=== PATIENT | female | born 1995 | race Caucasian/White ===

== ENCOUNTER → 2022-06-10 | Outpatient (CLI) | payer OTHER ==
--- NOTE | 2022-06-10 16:08 | Diagnostic Imaging Report ---
INDICATION: survey. TECHNIQUE: Multiple real-time grayscale images were obtained over the gravid uterus. COMPARISON: None FINDINGS: There is a single live fetus in a cephalic presentation. heart rate was recorded at 139 bpm. Placenta is posterior. No previa is identified. Amniotic fluid index is 10.4 cm. kidneys, bladder and stomach are unremarkable. brains unremarkable. There is four-chamber heart. There is three-vessel cord with normal insertion. spine is unremarkable. Biometrical measurements are as follows: Biparietal 4.80 cm, age 20 weeks 4 days. Head circumference 18.69 cm, age 21 weeks 1 days. Abdominal circumference 15.41 cm, age 20 weeks 5 days. Femur length 3.44 cm, age 20 weeks 6 days. Sonographic estimate age: 20 weeks 6 days. Sonographic estimated date of delivery: 10/22/2022. Estimated Weight: 373 gm (+/- 55 gm). LMP percentile: 54%. heart rate: 139 beats per minute. number: 1 of 1. IMPRESSION: Single live IUP 20 weeks 6 days gestational age. Estimated date of confinement sonographically is 10/22/2022. No complicating features are detected. Dictated by: Dictated on workstation # [id number]
== END ==
LOC: RAD 09:52
PROVIDERS: ATTEND Obstetrics & Gynecology
DX: Z36.9 Encounter for antenatal screening, unspecified (principal); Z3A.20 20 weeks gestation of pregnancy
CPT/HCPCS: 76805

== ENCOUNTER → 2022-10-14 | Outpatient (CLI) | payer OTHER | LOC: LABNPT 10:40 | PROVIDERS: ATTEND Nurse Practitioner Women's Health | DX: O13.9 Gestational [pregnancy-induced] hypertension without significant proteinuria, unspecified trimester (principal); Z3A.00 Weeks of gestation of pregnancy not specified | CPT/HCPCS: 82570; 84156 ==

== ENCOUNTER 2022-10-18 18:45 | Inpatient (IN) | payer OTHER ==
[~2022-10-18] VITALS: Ht 165 cm; Wt 108.9 kg
[2022-10-18] MEDS ORDERED: PREN-102 PO (19:36)
[2022-10-18 19:45] VITALS: BP 135/81
[2022-10-18] MEDS ORDERED: MINERAL OIL 30 ML UDC TOP PRN (19:45)
[2022-10-18] MEDS ORDERED: LIDOCAINE 1% INJ 20 ML VIAL IJ ONE (19:45)
[2022-10-18] MEDS: LACTATED RINGERS 1,000 ML IV SCH (19:59)
[2022-10-18 20:19] LABS: BILIRUBIN,URINE NEGATIVE (NEGATIVE); CLARITY,URINE CLEAR; COLOR,URINE YELLOW; GLUCOSE, URINE (UA) NEGATIVE (NEGATIVE); KETONES,URINE TRACE (NEGATIVE); LEUKOCYTE ESTERASE ,URINE NEGATIVE (NEGATIVE); NITRITE,URINE NEGATIVE (NEGATIVE); PH,URINE 6.5 (5-9); PROTEIN,URINE NEGATIVE (NEGATIVE)
[2022-10-18 20:20] LABS: BASOPHILS % (AUTO) 0 % (0-10); EOSINOPHILS # (AUTO) 0.1 10^3/uL (0.0-0.3); EOSINOPHILS % (AUTO) 1 % (0-10); HEMATOCRIT 35 % (35-52); HEMOGLOBIN 11.3 g/dL (11.5-16.0); LYMPHOCYTES # (AUTO) 2.6 10^3/uL (1.0-4.0); LYMPHOCYTES % (AUTO) 19 % (12-44); MEAN CORPUSCULAR HEMOGLOBIN 27 pg (25-34); MEAN CORPUSCULAR HGB CONC 32 g/dL (32-36); MEAN CORPUSCULAR VOLUME 85 fL (80-99); MEAN PLATELET VOLUME 10.6 fL (9.0-12.2); MONOCYTES % (AUTO) 8 % (0-12); NEUTROPHILS # (AUTO) 9.4 10^3/uL (1.8-7.8); NEUTROPHILS % (AUTO) 70 % (42-75); PLATELET COUNT 202 10^3/uL (130-400); WHITE BLOOD COUNT 13.5 10^3/uL (4.3-11.0)
[2022-10-18 20:31] VITALS: BP 123/79
[2022-10-18 20:59] LABS: BACTERIA,URINE FEW /HPF
[2022-10-18] MEDS ORDERED: D5 LR IV SOLUTION 1,000 ML IV ONE (21:05)
[2022-10-18] MEDS: D5 LR IV SOLUTION 1,000 ML IV SCH (21:08)
[2022-10-18 21:09] VITALS: BP 131/77
[2022-10-18 22:21] VITALS: BP 131/78
[2022-10-19] VITALS (63 sets, daily range): BP systolic 102–162; BP diastolic 52–97
[2022-10-19] MEDS: D5 LR IV SOLUTION 1,000 ML IV SCH ×3 (04:17→20:17)
[2022-10-19] MEDS ORDERED: OXYTOCIN PRE-MIX DRIP 500 ML IV ONE (06:53)
[2022-10-19] MEDS ORDERED: OXYTOCIN PRE-MIX DRIP 500 ML IV SCH (07:00)
--- NOTE | 2022-10-19 08:37 | History & Physical-OB ---
OB - Chief Complaint & HPI Date/Time Date of Admission: Date of Admission: Oct 18, 2022 at 18:45 Date seen by a Provider: Oct 19, 2022 Time Seen by a Provider: 08:25 Chief Complaint/History OB-Reason for Admission/Chief: Induction of Labor Hx : 39 Hx Para: 2 Expected Date of Delivery: Oct 24, 2022 Gestational Age in Weeks: 39 Gestational Age in Days: 1 Other reason for admission: Patient admitted for IOL at 39 weeks for GHTN. Misoprostol given overnight PO. Admission Nurse Assessment Rev: Yes Allergies and Home Medications Allergies Coded Allergies: No Known Drug Allergies (Unverified , 10/18/22) Patient Home Medication List Home Medication List Reviewed: Yes Vits #93/Iron Fum/FA ( Formula Tablet) 9 Mg Iron-267 Mcg Tablet, 1 EACH PO DAILY, (Reported) Entered as Reported by: Martha Billingsley on 10/18/221935 Last Action: New Order OB - History Hx of Present Care: Yes Ultrasounds: Normal mid trimester US Obstetrical Complications: Gestational Hypertension Medical Complications: None Patient Past Medical History n/a Immunizations Influenza Vaccine Up-to-Date: Yes; Up-to-Date OB - Admission Exam Physical Exam Vitals: Vital Signs 10/19/22 10/19/22 10/19/22 02:05 07:40 07:55 Temp 36.0 Pulse 71 Resp 18 B/P (MAP) 124/86 (99) Pulse Ox 98 O2 Delivery Room Air HEENT: NCAT Heart: Rhythm Normal Lungs: Clear Abdomen: Gravid Extremities: Normal Reflexes: Normal Cervical Dilatation: None Effacement: 75% Station: -2 Membranes: Intact Heart Rate: 130's Accelerations: Accelerations Present Decelerations: No Decelerations Short Term Variability: Present Snf Variability: Average (6-25) Contractions on Admission: 6-10 Minutes Apart Intensity: Mild Labs Laboratory Tests Test 10/18/22 20:00 Range/Units White Blood Count 13.5 H 4.3-11.0 10^3/uL Red Blood Count 4.14 3.80-5.11 10^6/uL Hemoglobin 11.3 L 11.5-16.0 g/dL Hematocrit 35 35-52 % Mean Corpuscular Volume 85 80-99 fL Mean Corpuscular Hemoglobin 27 25-34 pg Mean Corpuscular Hemoglobin Concent 32 32-36 g/dL Red Cell Distribution Width 13.8 10.0-14.5 % Platelet Count 202 130-400 10^3/uL Mean Platelet Volume 10.6 9.0-12.2 fL Immature Granulocyte % (Auto) 3 % Neutrophils (%) (Auto) 70 42-75 % Lymphocytes (%) (Auto) 19 12-44 % Monocytes (%) (Auto) 8 0-12 % Eosinophils (%) (Auto) 1 0-10 % Basophils (%) (Auto) 0 0-10 % Neutrophils # (Auto) 9.4 H 1.8-7.8 10^3/uL Lymphocytes # (Auto) 2.6 1.0-4.0 10^3/uL Monocytes # (Auto) 1.0 0.0-1.0 10^3/uL Eosinophils # (Auto) 0.1 0.0-0.3 10^3/uL Basophils # (Auto) 0.0 0.0-0.1 10^3/uL Immature Granulocyte # (Auto) 0.4 H 0.0-0.1 10^3/uL Urine Color YELLOW Urine Clarity CLEAR Urine pH 6.5 5-9 Urine Specific [place] 1.025 H 1.016-1.022 Urine Protein NEGATIVE NEGATIVE Urine Glucose (UA) NEGATIVE NEGATIVE Urine Ketones TRACE H NEGATIVE Urine Nitrite NEGATIVE NEGATIVE Urine Bilirubin NEGATIVE NEGATIVE Urine Urobilinogen 0.2 < = 1.0 MG/DL Urine Leukocyte Esterase NEGATIVE NEGATIVE Urine RBC (Auto) NEGATIVE NEGATIVE Urine RBC NONE /HPF Urine WBC 2-5 /HPF Urine Squamous Epithelial Cells 2-5 /HPF Urine Crystals NONE /LPF Urine Bacteria FEW H /HPF Urine Casts NONE /LPF Urine Mucus NEGATIVE /LPF Urine Culture Indicated YES OB - Assessment/Plan/Diagnosis Assessment Assessment: induction of labor Admission Dx 27 yo @ 39.2 GHTN GBS neg Admission Status: Inpatient Order (span 2 midnights) Reason for Inpatient Admission: IOL at 39 weeks Plan Plan: Induction Induction Method: per Misoprostol Protocol Other Plan Pitocin augmentation started this AM, unable to AROM ADRIANA MILLAN DO Oct 19, 2022 08:37
[2022-10-19] MEDS ORDERED: HYDROmorphone 2 MG/ML VIAL (DILAUDID) ONE (21:51)
[2022-10-19] MEDS ORDERED: HYDROmorphone 2 MG/ML VIAL (DILAUDID) IV PRN ×2 (22:00→22:15)
[2022-10-20] VITALS (65 sets, daily range): BP systolic 111–163; BP diastolic 55–89
[2022-10-20] MEDS: D5 LR IV SOLUTION 1,000 ML IV SCH ×2 (02:16→10:09)
[2022-10-20] MEDS ORDERED: fentaNYL 2 mcg/ml BUPIVA 0.125 100 ML ONE (02:24)
[2022-10-20] MEDS: LACTATED RINGERS 1,000 ML IV SCH (02:27)
[2022-10-20] MEDS ORDERED: LIDOCAINE PF 2% 5 ML (XYLOCAINE) VIAL ONE (02:57)
[2022-10-20] MEDS ORDERED: fentaNYL INJ 100 MCG/2 ML AMP ONE (02:57)
[2022-10-20] MEDS: fentaNYL 2 mcg/ml BUPIVA 0.125 100 ML EPI SCH ×2 (03:25→11:31)
[2022-10-20] MEDS ORDERED: ONDANSETRON 4 MG/2 ML (SDV) Z0FRAN IV PRN (03:45)
[2022-10-20] MEDS ORDERED: LACTATED RINGERS 1,000 ML IV SCH (03:45)
[2022-10-20] MEDS ORDERED: diphenhydrAMINE 50 MG/ML INJ (BENADRYL) IV PRN (03:45)
[2022-10-20] MEDS ORDERED: NALOXONE 0.4 MG/ML 1 ML (NARCAN) VIAL IV PRN ×3 (03:45→16:00)
[2022-10-20] MEDS ORDERED: METOCLOPRAMIDE INJ 10 MG/2 ML (REGLAN) IV PRN (03:45)
[2022-10-20] MEDS ORDERED: LIDOCAINE 1% INJ 20 ML VIAL ONE (10:59)
[2022-10-20] MEDS: OXYTOCIN PRE-MIX DRIP 500 ML IV SCH ×2 (15:47→16:20)
[2022-10-20] MEDS ORDERED: METHYLERGONOVINE 0.2 MG/ML (METHERGINE) AMP ONE (15:50)
[2022-10-20] MEDS ORDERED: MEASLES,MUMPS,RUBELLA 1 EA INJ SQ ONE (16:00)
[2022-10-20] MEDS ORDERED: HYDROcodone/APAP 5 MG/325 MG (LORTAB) TAB PO PRN (16:00)
[2022-10-20] MEDS ORDERED: DIBUCAINE 1% OINTMENT 28 GM TUBE TOP PRN (16:00)
[2022-10-20] MEDS ORDERED: TETANUS,DIPTH,PERTUSS P/F (BOOSTRIX) 0.5 ML VIAL IM ONE (16:00)
[2022-10-20] MEDS ORDERED: WITCH HAZEL(TUCKS) 40 EA JAR TOP PRN (16:00)
[2022-10-20] MEDS ORDERED: BENZOCAINE/MENTHOL (DERMOPLAST) 56 ML CAN TP PRN (16:00)
--- NOTE | 2022-10-20 16:08 | OB Labor & Delivery Record ---
L&D History Date of Service Date of Service: Oct 20, 2022 History Expected Date of Delivery: Oct 24, 2022 Gestational Age in Weeks: 39 Hx : 39 Hx Para: 2 Complications Events: Routine care Operative Indications (Cesarea: N/A-Vaginal Delivery Intrapartal Events: None L&D Stage1 Stage One Onset of Labor - Date: Oct 20, 2022 Monitors and Tracing Monitor Mode: Internal Heart Rate: 140 Monitor Accelerations: Uniform Monitor Decelerations: Variable Station: 0 Chcf Variability: Average (6-10) Short Term Variability: Present Presentation: Vertex Vital Signs VS - Last 72 Hours, by Label 10/18/22 10/18/22 10/18/22 10/18/22 19:45 20:31 21:09 22:21 Temp 36.4 36.4 36.7 36.5 Pulse 86 82 81 76 Resp 18 18 18 B/P (MAP) 123/79 (94) 131/77 (95) 131/78 (95) Pulse Ox 98 O2 Delivery Room Air Room Air 10/19/22 10/19/22 10/19/22 10/19/22 00:33 02:05 04:17 05:29 Temp 36.4 36.1 36.3 36.4 Pulse 67 71 71 68 Resp 16 16 16 16 B/P (MAP) 102/52 (69) 131/78 (95) 121/69 (86) 123/75 (91) Pulse Ox 98 O2 Delivery Room Air Room Air Room Air 10/19/22 10/19/22 10/19/22 10/19/22 06:12 07:00 07:15 07:40 Temp 36.3 36.1 36.1 36.0 Pulse 76 69 71 77 Resp 18 18 18 18 B/P (MAP) 118/62 (80) 126/81 (96) 120/72 (88) 129/84 (99) O2 Delivery Room Air Room Air 10/19/22 10/19/22 10/19/22 10/19/22 07:55 08:10 08:25 08:40 Pulse 71 70 83 78 Resp 18 18 18 18 B/P (MAP) 124/86 (99) 137/74 (95) 128/88 (101) 133/77 (95) O2 Delivery Room Air Room Air Room Air Room Air 10/19/22 10/19/22 10/19/22 10/19/22 08:55 09:10 09:25 09:40 Pulse 70 72 75 82 Resp 18 18 18 18 B/P (MAP) 130/72 (91) 134/76 (95) 135/90 (105) 123/73 (90) O2 Delivery Room Air Room Air Room Air Room Air 10/19/22 10/19/22 10/19/22 10/19/22 09:55 10:10 10:24 10:40 Temp 36.2 Pulse 78 70 74 70 Resp 18 18 18 18 B/P (MAP) 120/71 (87) 121/73 (89) 134/81 (98) 135/84 (101) O2 Delivery Room Air Room Air Room Air Room Air 10/19/22 10/19/22 10/19/22 10/19/22 10:55 11:10 11:25 11:45 Temp 36.0 Pulse 67 70 86 63 Resp 18 18 18 18 B/P (MAP) 129/83 (98) 132/88 (103) 138/88 (105) 124/60 (81) O2 Delivery Room Air Room Air Room Air Room Air 10/19/22 10/19/22 10/19/22 10/19/22 11:55 12:10 12:24 12:40 Pulse 63 68 69 77 Resp 18 18 18 18 B/P (MAP) 110/63 (79) 140/80 (100) 145/92 (109) 128/83 (98) O2 Delivery Room Air Room Air Room Air Room Air 10/19/22 10/19/22 10/19/22 10/19/22 12:55 13:10 13:25 13:41 Pulse 74 91 80 80 Resp 18 18 18 18 B/P (MAP) 128/75 (92) 130/79 (96) 119/75 (90) 125/82 (96) O2 Delivery Room Air Room Air Room Air Room Air 10/19/22 10/19/22 10/19/22 10/19/22 13:54 14:11 14:18 14:26 Temp 36.1 Pulse 85 80 78 Resp 18 18 18 B/P (MAP) 136/81 (99) 133/83 (100) 117/72 (87) O2 Delivery Room Air Room Air Room Air 10/19/22 10/19/22 10/19/22 10/19/22 14:40 14:55 15:10 15:26 Pulse 71 71 73 72 Resp 18 18 18 18 B/P (MAP) 119/69 (86) 115/63 (80) 124/66 (85) 140/85 (103) O2 Delivery Room Air Room Air Room Air Room Air 10/19/22 10/19/22 10/19/22 10/19/22 15:40 15:47 15:54 16:09 Temp 36.1 Pulse 70 73 88 Resp 18 18 18 B/P (MAP) 137/85 (102) 131/81 (98) 145/81 (102) O2 Delivery Room Air Room Air Room Air 10/19/22 10/19/22 10/19/22 10/19/22 16:26 16:40 16:55 17:10 Pulse 71 74 81 74 Resp 18 18 18 18 B/P (MAP) 131/75 (93) 140/83 (102) 140/74 (96) 129/64 (85) O2 Delivery Room Air Room Air Room Air Room Air 10/19/22 10/19/22 10/19/22 10/19/22 17:26 17:41 17:54 19:10 Temp 36.2 36.4 Pulse 90 93 89 80 Resp 18 18 18 18 B/P (MAP) 123/67 (85) 129/80 (96) 126/68 (87) 134/77 (96) O2 Delivery Room Air Room Air Room Air 10/19/22 10/19/22 10/19/22 10/19/22 19:26 19:41 19:55 20:11 Temp 36.3 36.4 Pulse 69 90 91 79 Resp 18 18 18 18 B/P (MAP) 135/84 (101) 134/85 (101) 137/85 (102) 141/85 (103) Pulse Ox 98 O2 Delivery Room Air Room Air 10/19/22 10/19/22 10/19/22 10/19/22 20:25 20:56 21:59 22:13 Temp 36.4 Pulse 78 90 97 87 Resp 18 18 18 18 B/P (MAP) 145/88 (107) 136/75 (95) 138/82 (100) 130/76 (94) Pulse Ox 98 O2 Delivery Room Air 10/19/22 10/19/22 10/19/22 10/19/22 22:29 22:45 22:59 23:29 Temp 36.4 Pulse 85 88 96 95 Resp 18 18 18 18 B/P (MAP) 145/89 (107) 149/82 (104) 162/90 (114) 136/82 (100) Pulse Ox 98 97 O2 Delivery Room Air Room Air 10/19/22 10/20/22 10/20/22 10/20/22 23:59 00:38 00:58 01:29 Temp 36.4 36.4 Pulse 102 94 88 92 Resp 20 18 18 B/P (MAP) 156/97 (116) 140/81 (100) 144/87 (106) 135/79 (97) Pulse Ox 98 95 O2 Delivery Room Air Room Air 10/20/22 10/20/22 10/20/22 10/20/22 01:58 02:30 02:55 02:58 Temp 36.4 36.2 36.4 Pulse 91 96 100 95 Resp 18 20 18 20 B/P (MAP) 134/80 (98) 144/79 (100) 145/85 (105) 136/77 (96) Pulse Ox 99 99 99 96 O2 Delivery Room Air Room Air Room Air Room Air 10/20/22 10/20/22 10/20/22 10/20/22 03:07 03:10 03:15 03:20 Pulse 95 92 95 83 Resp 22 20 20 20 B/P (MAP) 136/77 (96) 140/78 (98) 150/78 (102) 142/78 (99) Pulse Ox 97 97 O2 Delivery Room Air 10/20/22 10/20/22 10/20/22 10/20/22 03:22 03:26 03:45 04:00 Temp 36.6 36.6 Pulse 90 86 86 85 Resp 20 20 20 18 B/P (MAP) 140/69 (92) 140/70 (93) 129/75 (93) 136/70 (92) Pulse Ox 95 95 95 O2 Delivery Room Air Room Air Room Air 10/20/22 10/20/22 10/20/22 10/20/22 04:15 04:30 04:45 05:00 Temp 36.6 Pulse 99 93 93 93 Resp 18 18 18 18 B/P (MAP) 133/69 (90) 137/76 (96) 124/73 (90) 124/73 (90) Pulse Ox 95 97 97 97 O2 Delivery Room Air Room Air Room Air Room Air 10/20/22 10/20/22 10/20/22 10/20/22 05:15 05:30 06:11 07:00 Temp 36.7 Pulse 96 89 100 95 Resp 18 18 18 18 B/P (MAP) 127/75 (92) 129/64 (85) 116/55 (75) 111/69 (83) Pulse Ox 97 96 95 98 O2 Delivery Room Air Room Air Room Air Room Air 10/20/22 10/20/22 10/20/22 10/20/22 07:15 07:17 07:30 07:45 Temp 36.1 Pulse 104 104 104 Resp 18 18 18 B/P (MAP) 113/68 (83) 134/76 (95) 128/74 (92) Pulse Ox 96 95 95 O2 Delivery Room Air Room Air Room Air 10/20/22 10/20/22 10/20/22 10/20/22 08:00 08:15 08:30 08:45 Temp 36.6 Pulse 93 96 97 98 Resp 18 18 18 18 B/P (MAP) 140/86 (104) 126/74 (91) 129/74 (92) 124/75 (91) Pulse Ox 96 95 96 96 O2 Delivery Room Air Room Air Room Air Room Air 10/20/22 10/20/22 10/20/22 10/20/22 09:00 09:15 09:30 09:45 Temp 36.1 Pulse 87 98 93 89 Resp 18 18 18 18 B/P (MAP) 123/66 (85) 125/72 (89) 123/68 (86) 124/65 (84) Pulse Ox 96 99 97 98 O2 Delivery Room Air Room Air Room Air Room Air 10/20/22 10/20/22 10/20/22 10/20/22 10:00 10:15 10:30 10:45 Temp 36.4 Pulse 100 108 108 112 Resp 18 18 18 18 B/P (MAP) 136/77 (96) 135/77 (96) 138/76 (96) 134/76 (95) Pulse Ox 98 98 98 97 O2 Delivery Room Air Room Air Room Air Room Air 110/20/22 10/20/22 10/20/22 11:00 11:15 11:30 11:45 Temp 36.4 Pulse 102 101 99 101 Resp 18 18 18 18 B/P (MAP) 136/80 (98) 141/81 (101) 147/81 (103) 153/87 (109) Pulse Ox 96 95 97 99 O2 Delivery Room Air Room Air Room Air Room Air 10/20/22 10/20/22 10/20/22 10/20/22 12:00 12:15 12:30 12:45 Temp 36.3 Pulse 101 108 101 98 Resp 18 18 18 18 B/P (MAP) 143/81 (101) 144/77 (99) 147/78 (101) 153/89 (110) Pulse Ox 97 99 99 96 O2 Delivery Room Air Room Air Room Air Room Air 10/20/22 10/20/22 10/20/22 13:00 13:15 13:30 Temp 36.7 Pulse 99 96 107 Resp 18 18 18 B/P (MAP) 151/77 (101) 153/76 (101) 115/77 (90) Pulse Ox 100 99 99 O2 Delivery Room Air Room Air Room Air Rupture of Membranes Amniotic Membrane Rupture Time: 1206 Vaginal Bleeding Description: Normal Show Induction/Anesthesia Epidural Cath Placement - Time: 312 Progress/Notes Patient admitted Wednesday for IOL. Misoprostol given overnight. AROM and pitocin augmentation used all day Wednesday, progressed slowly after epidural placement to complete and +1 station L&D Stage2 Stage Two Stage II Date: Oct 20, 2022 Monitors and Tracing Monitor Mode: Internal Heart Rate: 140 Monitor Accelerations: Uniform Monitor Decelerations: Variable Short Term Variability: Present Position: Right Occiput Anterior Presentation: Vertex Cord Descript/Complications Cord Vessel Description: 3 Vessels Complications Due to ineffective maternal pushing and heart rate tachycardia and r ecurrent variables decision was made to proceed with VAVD. Kiwi suction cup placed on flexion point of scalp. RML episiotomy made. With next maternal push gentle extension was performed of the vertex, however a pop off occured x 1. After 2 contractions with maternal pushing only, it was reapplied and the head was extended and delivered over RML. Nuchal cord reduced x 1. R emainder of delivery was unremarkable. Delivery Type Infant Delivery Method: Low Vacuum Extraction Anterior Shoulder: Right Episiotomy/Perineal Laceration Laceraction(s)/Extensions: Yes Episiotomy Description: Right Mediolateral Degree (describe repair) RML repaired using 3-0 and 2-0 vicryl suture in usual fashion. Condition of Infant Delivery 1 minute Comment: 7 5 minute Comment: 9 Notes LIve male weight 8lbs 3 oz. Condition of Infant Condition of Infant: Living Exam: No Observed Abnormalities L&D Stage3 Stage Three Stage III Date: Oct 20, 2022 Pictocin Pitocin Administration mu/min: 20 Pitocin ml/hr: 20 Pitocin Administration Comment: 30 mu wide open after delivery of placenta. methergine 0.2 mg im was given as well for persistent uterine atony. Placenta Delivery Placenta Delivery: Spontaneous Delivery Summary Summary Estimated blood loss (mL): 500 Attending at delivery: Adriana Millan DO Condition of Delivery Examined: Cervix Examined, Uterus Explored Post Hemorrhage: No Condition of Mother stable Condition of Infant (s) stable ADRIANA MILLAN DO Oct 20, 2022 16:08
[2022-10-20] MEDS ORDERED: LIDOCAINE 1% INJ 20 ML VIAL INJ ONE (17:00)
[2022-10-20] MEDS ORDERED: METHYLERGONOVINE 0.2 MG/ML (METHERGINE) AMP IM ONE (17:50)
[2022-10-20] MEDS: IBUPROFEN 600 MG (MOTRIN) TAB PO SCH (18:00)
[2022-10-20] MEDS: DOCUSATE SODIUM 100 MG (COLACE) CAP PO SCH (21:58)
[2022-10-21 00:30] VITALS: BP 108/66
[2022-10-21] MEDS: IBUPROFEN 600 MG (MOTRIN) TAB PO SCH ×2 (00:35→06:01)
[2022-10-21] MEDS: CATHETER FLUSH 10 ML SYR IV SCH ×2 (00:35→11:13)
[2022-10-21 06:01] VITALS: BP 115/58
[2022-10-21 06:03] LABS: BASOPHILS # (AUTO) 0.1 10^3/uL (0.0-0.1); BASOPHILS % (AUTO) 0 % (0-10); EOSINOPHILS % (AUTO) 0 % (0-10); HEMATOCRIT 32 % (35-52); HEMOGLOBIN 10.3 g/dL (11.5-16.0); LYMPHOCYTES % (AUTO) 11 % (12-44); MEAN CORPUSCULAR HEMOGLOBIN 28 pg (25-34); MEAN CORPUSCULAR HGB CONC 33 g/dL (32-36); MEAN CORPUSCULAR VOLUME 85 fL (80-99); MEAN PLATELET VOLUME 9.9 fL (9.0-12.2); MONOCYTES # (AUTO) 1.6 10^3/uL (0.0-1.0); MONOCYTES % (AUTO) 6 % (0-12); NEUTROPHILS # (AUTO) 21.9 10^3/uL (1.8-7.8); NEUTROPHILS % (AUTO) 81 % (42-75); PLATELET COUNT 200 10^3/uL (130-400)
[2022-10-21 08:17] VITALS: BP 116/60
[2022-10-21] MEDS: DOCUSATE SODIUM 100 MG (COLACE) CAP PO SCH (08:18)
[2022-10-21] MEDS ORDERED: FERROUS SULF 325 MG (IRON) TAB PO SCH (09:00)
[2022-10-21] MEDS ORDERED: ceFAZolin INJECTION 2,000 MG in NS (IVPB) 50 ML IV ONE (09:45)
--- NOTE | 2022-10-21 09:47 | Postpartum Progress Note ---
Note Note Day # 1 Subjective: Patient is without complaints. Ambulating, voiding. Tolerating a regular diet without nausea or vomiting. Normal lochia. Pain is well controlled with oral pain medications. Physical Exam: General - Alert and oriented, no apparent distress Abdomen - Soft, appropriately tender to palpation, non-distended, fundus firm at umbilicus Extremities - no edema, negative Seven's bilaterally Assessment: Post- day #1, status post vaginal delivery. Recovering well, hemodynamically stable Acute blood loss anemia Plan: Routine care. Encourage breast feeding. Encourage ambulation. Ferrous sulfate supplementation. Plan for discharge today Vitals - Labs Vital Signs - I&O Vital Signs Date Time Temp Pulse Resp B/P (MAP) Pulse Ox O2 Delivery O2 Flow Rate FiO2 10/21/22 06:01 36.2 85 18 115/58 (77) 97 Room Air 10/21/22 00:30 36.1 80 18 108/66 (80) 97 Room Air 10/20/22 21:58 35.9 85 18 113/56 (75) 97 Room Air 10/20/22 18:00 35.1 118 18 149/80 (103) 96 Room Air 10/20/22 17:45 99 18 139/74 (95) 95 Room Air 10/20/22 17:30 103 18 134/77 (96) 96 Room Air 10/20/22 17:15 110 18 141/62 (88) 96 Room Air 10/20/22 17:00 36.0 103 18 95 Room Air 10/20/22 16:45 101 18 134/68 (90) 94 Room Air 10/20/22 16:30 116 18 94 Room Air 10/20/22 16:15 133 18 133/56 (81) 94 Room Air 10/20/22 16:00 37.5 117 18 134/64 (87) 94 Room Air 10/20/22 15:53 107 18 134/62 (86) 94 Room Air 10/20/22 15:50 112 18 144/63 (90) 94 Room Air 10/20/22 15:00 37.0 101 18 150/68 (95) 96 Room Air 10/20/22 14:45 112 18 152/65 (94) 95 Room Air 10/20/22 14:30 116 18 163/72 (102) 97 Room Air 10/20/22 14:15 36.7 98 18 158/82 (107) 100 Room Air 10/20/22 14:00 95 18 117/61 (79) 100 Room Air 10/20/22 13:45 105 18 121/64 (83) 100 Room Air 10/20/22 13:30 107 18 115/77 (90) 99 Room Air 10/20/22 13:15 36.7 96 18 153/76 (101) 99 Room Air 10/20/22 13:00 99 18 151/77 (101) 100 Room Air 10/20/22 12:45 98 18 153/89 (110) 96 Room Air 10/20/22 12:30 101 18 147/78 (101) 99 Room Air 10/20/22 12:15 36.3 108 18 144/77 (99) 99 Room Air 10/20/22 12:00 101 18 143/81 (101) 97 Room Air 10/20/22 11:45 101 18 153/87 (109) 99 Room Air 10/20/22 11:30 99 18 147/81 (103) 97 Room Air 10/20/22 11:15 36.4 101 18 141/81 (101) 95 Room Air 10/20/22 11:00 102 18 136/80 (98) 96 Room Air 10/20/22 10:45 112 18 134/76 (95) 97 Room Air 10/20/22 10:30 108 18 138/76 (96) 98 Room Air 10/20/22 10:15 36.4 108 18 135/77 (96) 98 Room Air 10/20/22 10:00 100 18 136/77 (96) 98 Room Air 10/20/22 09:45 89 18 124/65 (84) 98 Room Air Labs Laboratory Tests 10/21/22 05:50: White Blood Count 27.0H, Red Blood Count 3.71L, Hemoglobin 10.3L, Hematocrit 32L , Mean Corpuscular Volume 85, Mean Corpuscular Hemoglobin 28, Mean Corpuscular Hemoglobin Concent 33, Red Cell Distribution Width 14.2, Platelet Count 200, Kaylyn n Platelet Volume 9.9, Immature Granulocyte % (Auto) 2, Neutrophils (%) (Auto) 81H, Lymphocytes (%) (Auto) 11L, Monocytes (%) (Auto) 6, Eosinophils (%) (Auto) 0, Basophils (%) (Auto) 0, Neutrophils # (Auto) 21.9H, Lymphocytes # (Auto) 3.0, Monocytes # (Auto) 1.6H, Eosinophils # (Auto) 0.0, Basophils # (Auto) 0.1, Immature Granulocyte # (Auto) 0.5H Microbiology 10/18/22 Urine Culture - Final, Complete Gram Pos Mixed Bacterial Carin PERI SANCHEZ HOME HEALTH AIDE CAREGIVER Oct 21, 2022 09:47
[2022-10-21] MEDS ORDERED: ACHD5005 PO (09:50)
[2022-10-21] MEDS ORDERED: WTCHGPD TOP (09:50)
[2022-10-21] MEDS ORDERED: IBUP-844 PO (09:50)
[2022-10-21] MEDS ORDERED: FERR325T24 PO (09:50)
[2022-10-21] MEDS ORDERED: BENZ78AE5 TP (09:50)
[2022-10-21] MEDS ORDERED: DOCU100C37 PO (09:50)
[2022-10-21] MEDS ORDERED: DIBU30OI TOP (09:50)
--- NOTE | 2022-10-21 09:51 | Discharge Inst-Women's Service ---
Discharge Inst-Women's Serv Depart Medication/Instructions New, Converted or Re-Newed RX: Transmitted to Pharmacy Consults/Follow Up Additional Follow Up: Yes (6wk appt) Activity Activity: Activity as Tolerated Driving Instructions: No Driving for 1 Week NO SMOKING: NO SMOKING Nothing Inside Vagina: No Douching, No [place], No Tampons Diet Discharge Diet: No Restrictions Symptoms to Report to : Pain Increased, Fever Over 101 Degrees F, Vaginal Bleeding Increase, Vaginal Discharge Foul For Any Problems or Questions: Contact Your Physician PERI SANCHEZ APRN Oct 21, 2022 09:51
[2022-10-21 12:00] VITALS: BP 131/76
--- NOTE | 2022-10-21 12:40 | Anesthesia-Regional Post-Op ---
Regional Patient Condition Mental Status: Alert, Oriented x3 Circulation: Same as Pre-Op Headache: Absent Sensation: Full Recovery Motor Block: Absent Post Op Complications Complications None Follow Up Care/Instructions Patient Instructions None needed. Anesthesia/Patient Condition Patient is doing well, no complaints, stable vital signs, no apparent adverse anesthesia problems. No complications reported per nursing. LORIE RAI CRNA Oct 21, 2022 12:40
[2022-10-21 13:37] VITALS: BP 131/76
== END 2022-10-21 13:37 | disposition home or self-care (01) | DRG 806 ==
LOC: LDRP 18:45 → WS 10-20 12:16 → LDRP 10-20 12:16
PROVIDERS: ADMIT Obstetrics & Gynecology; ATTEND Obstetrics & Gynecology
PROC: 3E0DXGC Introduction of Other Therapeutic Substance into Mouth and Pharynx, External Approach (ICD-10-PCS; 2022-10-18)
PROC: 10D07Z6 Extraction of Products of Conception, Vacuum, Via Natural or Artificial Opening (ICD-10-PCS; principal; 2022-10-19)
PROC: 0W8NXZZ Division of Female Perineum, External Approach (ICD-10-PCS; 2022-10-19)
PROC: 10907ZC Drainage of Amniotic Fluid, Therapeutic from Products of Conception, Via Natural or Artificial Opening (ICD-10-PCS; 2022-10-19)
DX: O13.4 Gestational [pregnancy-induced] hypertension without significant proteinuria, complicating childbirth (principal); D62 Acute posthemorrhagic anemia; Z37.0 Single live birth; Z3A.39 39 weeks gestation of pregnancy; O69.81X0 Labor and delivery complicated by cord around neck, without compression, not applicable or unspecified; O76 Abnormality in fetal heart rate and rhythm complicating labor and delivery; O62.8 Other abnormalities of forces of labor; O62.2 Other uterine inertia; O90.81 Anemia of the puerperium
CPT/HCPCS: 36415; 81000; 83033; 85025; 86780; 86850; 86900; 86901; 87088

== ENCOUNTER 2023-02-02 10:28 | Day surgery (SDC) | payer OTHER ==
[~2023-02-02] VITALS: Ht 165.1 cm; Wt 100.0 kg
[2023-02-02] VITALS (9 sets, daily range): BP systolic 133–149; BP diastolic 82–97
[~2023-02-02 10:28] MED LIST: ACHD5005 PO; BENZ78AE5 TP; DIBU30OI TOP; DOCU100C37 PO; FERR325T24 PO; IBUP-844 PO; PREN-102 PO; WTCHGPD TOP
[2023-02-02] MEDS ORDERED: LIDOCAINE 1% INJ 20 ML VIAL ONE (11:35)
[2023-02-02] MEDS ORDERED: TETANUS,DIPTH,PERTUSS P/F (BOOSTRIX) 0.5 ML VIAL IM ONE ×2 (12:29→17:00)
[2023-02-02] MEDS ORDERED: fentaNYL INJ 100 MCG/2 ML AMP ONE (13:41)
[2023-02-02] MEDS ORDERED: MIDAZOLAM 2 MG/2 ML (VERSED) VIAL ONE (13:41)
[2023-02-02] MEDS ORDERED: LACTATED RINGERS 1,000 ML IV PRN ×2 (14:00→14:45)
[2023-02-02] MEDS ORDERED: ceFAZolin INJECTION 2,000 MG ONE (14:52)
[2023-02-02] MEDS ORDERED: BUP/EPI 0.5% 1:200,000 (SENSORCAINE) 30 ML VIAL ONE (15:12)
[2023-02-02] MEDS ORDERED: proPOfol 200 MG/20 ML (DIPRIVAN) VIAL IV ONE (15:34)
[2023-02-02] MEDS ORDERED: ONDANSETRON 4 MG/2 ML (SDV) Z0FRAN ONE ×2 (15:34→16:29)
[2023-02-02] MEDS ORDERED: SUCCINYLCHOLINE INJ 20 MG/1 ML 10 ML VIAL ONE (15:34)
[2023-02-02] MEDS ORDERED: ROCURONIUM 50 MG/5 ML (ZEMURON) VIAL IV ONE (15:34)
[2023-02-02] MEDS ORDERED: LIDOCAINE PF 2% 5 ML (XYLOCAINE) VIAL ONE (15:35)
[2023-02-02] MEDS ORDERED: SEVOFLURANE (ULTANE) 15 ML INHAL SOLN ONE (15:58)
--- NOTE | 2023-02-02 16:10 | ED Head Injury ---
General Stated Complaint: DOG BITE Source: patient Exam Limitations: no limitations (ZULEYMA CELAYA) History of Present Illness Date Seen by Provider: February 02, 2023 Time Seen by Provider: 16:03 Initial Comments Patient is a 27-year-old female presents the ED with a dog bite to her face and scalp. She states around 9:50 AM this morning she attempted to get her Sami Zayas out of the fence. The Sami Zayas was chasing after a squirrel. She states her Sami Zayas accidentally bit her face and forehead resulting in a large laceration to the left scalp and a few puncture wounds to the left face. She had moderate amount of bleeding. She applied direct pressure. She states her dog is up-to-date on his rabies vaccine. She is not to date her tetanus. She reports mild pain. Denies loss of conscious, nausea, vomiting, visual changes, headache, dizziness. Bleeding controlled on arrival but did have gauze around her scalp. (ZULEYMA CELAYA) Allergies and Home Medications Allergies Coded Allergies: No Known Drug Allergies (Unverified , 10/18/22) Patient Home Medication List Home Medication List Reviewed: Yes (ZULEYMA CELAYA) Benzocaine/Menthol (Dermoplast Pain Relieving [place]) 20 %-0.5 % Aerosol, 1 APPLIC TP UD PRN for PAIN- SEE INSTRUCTIONS Prescribed by: PERI SANCHEZ on 10/21/22 0950 Dibucaine (Dibucaine) 1 % Oint, 1 APPLIC TOP UD PRN for PAIN- SEE INSTRUCTIONS Prescribed by: PERI SANCHEZ on 10/21/22 0950 Docusate Sodium (Docusate Sodium) 100 Mg Capsule, 100 MG PO BID Prescribed by: PERI SANCHEZ on 10/21/22 0950 Ferrous Sulfate (Ferosul) 325 Mg (65 Mg Iron) Tablet, 325 MG PO DAILY Prescribed by: PERI SANCHEZ on 10/21/22 0950 Ibuprofen (Ibu) 600 Mg Tablet, 600 MG PO Q6H Prescribed by: PERI SANCHEZ on 10/21/22 0950 Vits #93/Iron Fum/FA ( Formula Tablet) 9 Mg Iron-267 Mcg Tablet, 1 EACH PO DAILY, (Reported) Entered as Reported by: Martha Billingsley on 10/18/221935 Witch Radha/Glycerin (A.e.r Pads) 12.5 %-50 % Pad, 1-2 EA TOP UD PRN for PAIN- SEE INSTRUCTIONS Prescribed by: PERI SANCHEZ on 10/21/22 0950 Discontinued Medications Hydrocodone Bit/Acetaminophen (HYDROcodone/APAP 5 MG/325 MG TAB) 1 Tab Tab, 1 EA PO Q4H PRN for PAIN-MODERATE (5-7) Discontinued Reason: New Order Prescribed by: PERI SANCHEZ on 10/21/22 0950 Review of Systems Review of Systems Constitutional: No chills, No diaphoresis, No fever, No malaise Eyes: Denies Blurred Vision, Denies Decreased Acuity Ears, Nose, Mouth, Throat: denies ear pain, denies ear discharge Respiratory: No cough, No dyspnea on exertion Cardiovascular: No chest pain Gastrointestinal: No abdominal pain, No diarrhea, No nausea Genitourinary: No decreased output, No discharge Musculoskeletal: No back pain, No joint pain Skin: other (Laceration) (ZULEYMA CELAYA) All Other Systems Reviewed Negative Unless Noted: Yes (ZULEYMA CELAYA) Past Wbynxgh-Rexsyl-Wyqswg Hx Patient Social History Smoking Status: Never a Smoker (ZULEYMA CELAYA) Seasonal Allergies Seasonal Allergies: No (ZULEYMA CELAYA) Past Medical History Surgeries: No Respiratory: No Cardiac: No Neurological: No Genitourinary: No Gastrointestinal: No Musculoskeletal: No Endocrine: No HEENT: No Cancer: No Psychosocial: No Integumentary: No Blood Disorders: No (ZULEYMA CELAYA) Physical Exam Vital Signs Vital Signs - First Documented 02/02/23 10:28 Temp 37.1 Pulse 114 Resp 20 B/P (MAP) 131/88 (102) Pulse Ox 97 O2 Delivery Room Air (TAMY CARY MD) Vital Signs Capillary Refill : (ZULEYMA CELAYA) Height, Weight, BMI Height: '" Weight: lbs. oz. kg; 36.68 BMI Method: General Appearance: WD/WN, no apparent distress HEENT: PERRL/EOMI, normal ENT inspection, TMs normal, pharynx normal, other (7 inch laceration to the forehead and left-sided scalp. 2 cm laceration to right side of scalp) Neck: full range of motion, supple, normal inspection Cardiovascular: regular rate, rhythm, no edema, no gallop, no JVD Respiratory: chest non-tender, lungs clear, normal breath sounds Gastrointestinal: normal bowel sounds, non tender, soft, no organomegaly Back: normal inspection, no CVA tenderness Extremities: normal range of motion, non-tender, normal inspection, no pedal edema [place] Nerves: normal hearing, normal speech, PERRL Coordination/Gait: normal finger to nose, normal gait Motor/Sensory: no motor deficit, no sensory deficit Skin: other (7 inch laceration to the left scalp. Adipose involvement. Mild bleeding. 2 cm laceration to right scalp. Bleeding controlled.) (ZULEYMA CELAYA) [place] Coma Score Best Eye Response: (4) Open Spontaneously Best Verbal Response: (5) Oriented Best Motor Response: (6) Obeys Commands Valerie Total: 15 (ZULEYMA CELAYA) Procedures/Interventions Wound Location: Scalp Other Wound Location Right scalp two cm Wound Length (cm): 2 Wound's Depth, Shape: superficial, sub Q Wound Explored: clean Irrigated w/ Saline (ccs): 200 Betadine Prep?: Yes Anesthesia: Lidocaine w/ Epi Volume Anesthetic (ccs): 4 Wound Debrided: minimal Staple Repair: Stapler 35W Number of Sutures: 5 Layer Closure?: 1 Sterile Dressing Applied?: Yes (ZULEYMA CELAYA) Progress/Results/Core Measures Results/Orders Blood Pressure Mean: 110 Departure Communication (Admissions) Patient will go to the OR for scalp closure (ZULEYMA CELAYA) Communication (PCP) Patient with a large 7 inch laceration to the left forhead and left scalp and a 2 cm laceration to the right scalp. She does have 2 puncture wounds to the left side of face that do not need suture. Due to mechanism of injury CT scan of the head and face was ordered which was unremarkable. Updated her tetanus. I Was able to place 5 christy to the right side of scalp. She had this large left sided scalp laceration with a large hematoma that has developed. I Was not able to approximate the skin. Attempted with sutures and christy but was unsuccessfu l. due to the difficulty of the laceration patient was discussed with Dr. Machado general surgeon. He evaluated patient recommended going to the OR for closure. Patient will admitted to the OR. area would need to be cleaned out. Attempted cleaning out with normal saline and Shur-Clens here. She refused anything for pain. Neuro exam unremarkable. She states her dog is up-to-date on the rabies. She states the dog was trying to go after a squirrel and when she helped her dog he did it out of excitement and fear. She is not concerned for her own dog. Patient will need to be started on Augmentin. Dr. Machado will provide disposition (ZULEYMA CELAYA) Impression Primary Impression: Scalp laceration Disposition: 30 STILL A PATIENT Condition: Stable Admissions Decision to Admit Reason: Admit from ER (General) Decision to Admit/Date: February 02, 2023 Time/Decision to Admit Time: 16:07 (ZULEYMA CELAYA) Departure-Patient Inst. Referrals: NO,LOCAL PHYSICIAN (PCP/Family) Primary Care Physician Patient Instructions: Laceration Repair With [place] ED ATTENDING PHYSICIAN NOTE: I was physically present as attending physician in the emergency department during the care of this patient, but I was not directly involved in the decision making or delivery of care for this patient. (TAMY CARY MD) ZULEYMA CELAYA February 02, 2023 16:09 TAMY CARY MD February 05, 2023 06:15
--- NOTE | 2023-02-02 16:12 | Anesthesia-General Post-Op ---
General Patient Condition Mental Status/LOC: Same as Preop Cardiovascular: Satisfactory Nausea/Vomiting: Absent Respiratory: Satisfactory Pain: Controlled Complications: Absent Post Op Complications Complications None Follow Up Care/Instructions Patient Instructions None needed. Anesthesia/Patient Condition Patient Condition Patient is doing well, no complaints, stable vital signs, no apparent adverse anesthesia problems. No complications reported per nursing. JAIME REYES CRNA February 02, 2023 16:12
[2023-02-02] MEDS ORDERED: HYDROmorphone 2 MG/ML VIAL (DILAUDID) IV ONE (16:15)
[2023-02-02] MEDS ORDERED: MEPERIDINE (DEMEROL) INJ 50 MG/ML IVP ONE (16:15)
[2023-02-02] MEDS ORDERED: ONDANSETRON 4 MG/2 ML (SDV) Z0FRAN IVP PRN (16:15)
[2023-02-02] MEDS ORDERED: morphine INJ 10 MG/ML 1ML (SYR OR VIAL) IVP ONE (16:15)
[2023-02-02] MEDS ORDERED: PROMETHAZINE INJ 25 MG/ML (PHENERGAN) AMP IVP ONE (16:15)
--- NOTE | 2023-02-02 16:20 | Diagnostic Imaging Report ---
PROCEDURE: CT head and maxillofacial without contrast. TECHNIQUE: Multiple contiguous axial images were obtained through the head and facial bones without the use of intravenous contrast. Auto Exposure Controls were utilized during the CT exam to meet ALARA standards for radiation dose reduction. INDICATION: Attacked by dog with scalp laceration. COMPARISON: No prior studies are available for comparison. FINDINGS: CT HEAD: There is marked soft tissue swelling involving the right and left frontal scalp, particularly on the left. There is a moderate amount of soft tissue gas present within the scalp, consistent with a laceration. The ventricles and sulci are within normal limits. No sulcal effacement or midline shift is identified. No acute intra-axial or extra-axial hemorrhage is detected. The cisterns are patent. The visualized paranasal sinuses are clear. IMPRESSION: Significant scalp injury in the frontal scalp with soft tissue gas. No acute intracranial process is detected. CT FACE: The mandible is intact. The zygomatic arches are intact. The maxillary sinus rodriguez, nasal bones, and orbital rodriguez are intact. The visualized paranasal sinuses are clear. IMPRESSION: No facial bone fracture is identified. Dictated by: Dictated on workstation # [id number]
[2023-02-02] MEDS ORDERED: LIDOCAINE 1% INJ 20 ML VIAL INJ ONE (17:00)
--- NOTE | 2023-02-03 05:32 | OPERATIVE REPORT ---
DATE OF SERVICE: 02/02/2023 PREOPERATIVE DIAGNOSIS: Dog bite scalp laceration. POSTOPERATIVE DIAGNOSIS: Dog bite scalp laceration. PROCEDURE: Washout and closure of scalp laceration, 9 cm. SURGEON: Mckinley Machado DO ANESTHESIA: General. ESTIMATED BLOOD LOSS: Minimal. COMPLICATIONS: None. INDICATIONS: The patient is a 27-year-old female whose dog was [ ] on a privacy fence, she was trying to get it down and the dog bit her face. She has a large laceration to the forehead area and left scalp, partials were already closed by the Emergency Department; however, was unable to get the rest of it closed. I discussed with her risks and benefits of procedure and wished to proceed. Consent was signed in chart. DESCRIPTION OF PROCEDURE: The patient was taken to the operating suite. She was prepped and draped in sterile fashion. Timeout was performed. The wound had significant clot burden within it and suctioned this out and thoroughly irrigated the wound. Hemostasis was achieved. The laceration is all the way down to the skull bone. Cautery was used to achieve hemostasis and after copious amounts of irrigation, the skin was then began to be closed with 3-0 Prolene in simple interrupted fashion. The total length of my repair was 9 cm. After the wound was then closed, she was washed and draped in sterile fashion. Sterile bandage was applied. The patient tolerated the procedure well without any complications. She was taken to recovery room in stable condition. Job ID: [id number] DocumentID: [id number] Dictated Date: 02/02/2023 22:01:51 [place]usher Date: 02/03/2023 05:31:00 Dictated By: MCKINLEY MACHADO DO
== END 2023-02-02 18:10 | disposition home or self-care (01) ==
LOC: EDUNIT# 10:52 → ER 10:53 → SDC 13:21
PROVIDERS: ATTEND Surgery
DX: S01.05XA Open bite of scalp, initial encounter (principal); S01.01XA Laceration without foreign body of scalp, initial encounter; S01.81XA Laceration without foreign body of other part of head, initial encounter; W54.0XXA Bitten by dog, initial encounter
CPT/HCPCS: 12001; 70450; 70486; 84703; 87081; 90715